=== PATIENT | male | born 1940 | race Caucasian/White ===

== ENCOUNTER 2017-08-09 06:12 | Day surgery (SDC) | payer MEDICARE, MEDICAID ==
[2017-08-05 10:47] LABS: BASOPHILS % (AUTO) 0.8 % (0-1); EOSINOPHILS # (AUTO) 0.1 X10'3 (0-0.9); LYMPHOCYTES % (AUTO) 27.8 % (21-51); MEAN CORPUSCULAR HEMOGLOBIN 32.3 PG (27.0-31.0); MEAN CORPUSCULAR HGB CONC 34.3 % (33.0-36.5); MEAN CORPUSCULAR VOLUME 94.3 FL (78-98); MEAN PLATELET VOLUME 8.5 FL (7.4-10.4); MONOCYTES # (AUTO) 0.2 X10'3 (0-0.9); MONOCYTES % (AUTO) 7.1 % (2-12); NEUTROPHILS # (AUTO) 2.2 X10'3 (1.8-7.7); NEUTROPHILS % (AUTO) 62.3 % (42-75); PRE OP HEMOGLOBIN 13.7 g/dL (14.0-17.9); PRE OP PLATELET COUNT 175 X10'3 (140-440); RED BLOOD COUNT 4.24 X10'6 (4.70-6.10); RED CELL DISTRIBUTION WIDTH 11.7 % (11.5-14.5)
[2017-08-05 10:53] LABS: CLARITY,URINE CLEAR (Clear); COLOR,URINE YELLOW (Yellow); GLUCOSE, URINE NEGATIVE (Neg); KETONES,URINE NEGATIVE (Neg); LEUKOCYTE ESTERASE ,URINE NEGATIVE (Neg); NITRITES, URINE NEGATIVE (Neg); OCCULT BLOOD,URINE NEGATIVE (Neg); PH,URINE 5.5 (4.8-8.0); PROTEIN,URINE NEGATIVE (Neg); UROBILINOGEN,URINE 0.2 E.U/dL (0.2-1.0)
[2017-08-05 10:54] LABS: UA COLLECTION TYPE NON-SPECIFIED
[2017-08-05 11:00] LABS: ALBUMIN 4.2 G/DL (3.4-5.0); ALKALINE PHOSPHATASE 74 IU/L (46-116); BLOOD UREA NITROGEN 18 MG/DL (7-18); BUN/CREATININE RATIO 21.4 (5.4-32.0); CALCIUM 9.5 MG/DL (8.5-10.1); CHLORIDE 104 MMOL/L (99-107); CREATININE 0.84 MG/DL (0.60-1.10); PRE OP ALT 19 U/L (30-65); PRE OP ANION GAP 6 (8-16); PRE OP AST 35 U/L (10-37); PRE OP BILIRUB, TOTAL 0.6 MG/DL (0.0-1.0); PRE OP GLUCOSE 103 MG/DL (70-104); PRE OP POTASSIUM 4.3 MMOL/L (3.4-5.1); PRE OP SODIUM 140 MMOL/L (135-145); TOTAL CARBON DIOXIDE 30.1 MMOL/L (24-32); TOTAL PROTEIN 8.3 G/DL (6.4-8.2); eGFR 89 ML/MIN
[2017-08-09] VITALS (7 sets, daily range): BP systolic 117–132; BP diastolic 63–75
[~2017-08-09] VITALS: Ht 165.1 cm; Wt 76.6 kg
[~2017-08-09 06:12] MED LIST: BUPR1FIL17 SL; CEFAZOLIN 1 GM IV ONE; DEXTROSE IV ONE; DOCU100C41 PO; FINA5TAB11 PO; FLO0.4C PO; LISI40TA4 PO; famotidine 20mg tablet PO ONE; ringers solution, lacted 1,000 ML IV SCH
[2017-08-09] MEDS ORDERED: BUPIVAcaine/PF 2.5 mg/ml (0.25%) 30ml vial ONE ×2 (08:13→08:56)
[2017-08-09] MEDS ORDERED: povidone-iodine 10% topical ointment 28.4gm TP ONE (08:13)
[2017-08-09] MEDS ORDERED: LIDOcaine 1% 30ml vial ONE (08:13)
[2017-08-09] MEDS ORDERED: MIDAZolam 5mg/5ml vial ONE (08:44)
[2017-08-09] MEDS ORDERED: fentaNYL/PF 50MCG/1 ML 2ML syringe ONE (08:44)
[2017-08-09] MEDS ORDERED: LIDOcaine 2% (20mg/ml) 5ml vial ONE ×2 (08:55)
[2017-08-09] MEDS ORDERED: propofol inj 20 ML IV ONE (08:55)
[2017-08-09] MEDS ORDERED: glycopyrrolate 0.2mg/ml inj ONE (09:00)
[2017-08-09] MEDS ORDERED: morphine sulfate 8 MG/ML SYRINGE IV PRN (09:15)
[2017-08-09] MEDS ORDERED: ondansetron/PF 4mg/2ml inj IV PRN (09:15)
[2017-08-09] MEDS ORDERED: ringers solution, lacted 1,000 ML IV SCH (09:15)
== END 2017-08-09 09:55 | disposition home or self-care (01) ==
LOC: PAS 06:12
PROVIDERS: ATTEND Surgery
DX: L72.0 Epidermal cyst (principal); I10 Essential (primary) hypertension; N40.0 Benign prostatic hyperplasia without lower urinary tract symptoms; F10.21 Alcohol dependence, in remission; F19.11 Other psychoactive substance abuse, in remission; Z79.899 Other long term (current) drug therapy; L08.9 Local infection of the skin and subcutaneous tissue, unspecified
CPT/HCPCS: 11402; 36415; 80053; 81003; 85025; 93005; A6258; A6449; J0690; J2001; J2250; J2704; J3010; J3490; J7120; 88304; A7000